=== PATIENT | female | born 1995 | race Caucasian/White ===

== ENCOUNTER 2019-08-25 18:37 | Outpatient (CLI) | payer BC, MEDICAID ==
[2019-08-25 19:16] LABS: APPEARANCE,URINE CLEAR; BILIRUBIN,URINE NEGATIVE (NEGATIVE); COLOR,URINE YELLOW; GLUCOSE, URINE NEGATIVE (NEGATIVE); KETONES,URINE 80 mg/dL (NEGATIVE); LEUKOCYTE ESTERASE,URINE NEGATIVE (NEGATIVE); NITRITE,URINE NEGATIVE (NEGATIVE); PROTEIN,URINE NEGATIVE (NEGATIVE); URINE SPECIFIC GRAVITY 1.014; UROBILINOGEN,URINE NEGATIVE mg/dL (<2.0)
[2019-08-25 19:29] LABS: URINE AMPHETAMINES SCREEN NEGATIVE; URINE BARBITURATES SCREEN NEGATIVE; URINE BENZODIAZEPINES SCREEN NEGATIVE; URINE COCAINE SCREEN NEGATIVE; URINE MARIJUANA (THC) SCREEN NEGATIVE; URINE METHADONE SCREEN NEGATIVE; URINE PHENCYCLIDINE SCREEN NEGATIVE
[2019-08-25] MEDS ORDERED: ACETAMINOPHEN 325 MG TABLET ONE (23:41)
[2019-08-25] MEDS ORDERED: ACETAMINOPHEN 325 MG TABLET PO ONE (23:59)
--- NOTE | 2019-08-26 08:13 | RADIOLOGY REPORT (SQ) ---
EXAM DESCRIPTION: U/S OB 14+ TRNABD 1GES W/O DOP COMPLETED DATE/TIME: 08/25/2019 9:04 pm REASON FOR STUDY: OB Complete COMPARISON: None. TECHNIQUE: Static and Dynamic grayscale imaging performed of gravid uterus using transabdominal appr oac. Additional selected color Doppler and spectral images recorded. All stored on PACS. LIMITATIONS: None. FINDINGS: FETUSES SEEN:1 EGA: 27 week 0 days. Calculated using BPD,FL,HC,AC documented on images. No discrepancy with clinica l dates. HOWARD: 11/24/2019 EFW: 1,020 grams PERCENTILE: 44th GENOVEVA: 11.0 cm. PLACENTA: Anterior. GRADE: I PRESENTATION: Cephalic. ANATOMY: HEART RATE: 153 beats per minute. FOUR CHAMBER HEART: Visualized. THREE VESSEL CORD: Yes. CORD INSERTION: Visualized. KIDNEYS AND BLADDER: Visualized. Appear normal. STOMACH: Visualized. Appears normal. SPINE: Normal as visualized. BRAIN AND LATERAL VENTRICLES: Visualized. Appear normal. OTHER: No other significant finding. MATERNAL ADNEXA: Maternal ovaries not visualized. CERVICAL LENGTH: 3.0 cm. Closed. OTHER: No other significant finding. IMPRESSION: LIVING INTRAUTERINE . ESTIMATED GESTATIONAL AGE 27 WEEK 0 DAYS. NO VISUALIZED ANOMALIES. Trimester of : Second trimester - 13 weeks 1 day to 27 weeks 6 days. TECHNICAL DOCUMENTATION: JOB ID: [id number] TE2- All Rights Reserved Reading location - IP/workstation name: [email or web address]
== END 2019-08-26 00:14 | disposition home or self-care (01) ==
LOC: LC 18:37
PROVIDERS: ATTEND Obstetrics & Gynecology
PROC: 4A1HXCZ Monitoring of Products of Conception, Cardiac Rate, External Approach (ICD-10-PCS; principal; 2019-08-25)
DX: O36.8120 Decreased fetal movements, second trimester, not applicable or unspecified (principal); Z3A.27 27 weeks gestation of pregnancy
CPT/HCPCS: 76805; 80307; 81001

== ENCOUNTER 2019-10-12 10:40 | Outpatient (CLI) | payer BC, MEDICAID ==
[2019-10-12] MEDS ORDERED: RINGERS SOLUTION,LACTATED 1,000 ML IV ONE (11:19)
[2019-10-12] MEDS ORDERED: RINGERS SOLUTION,LACTATED 1,000 ML IV PRN (11:19)
[2019-10-12 11:25] LABS: APPEARANCE,URINE CLEAR; BILIRUBIN,URINE SMALL (NEGATIVE); COLOR,URINE DARK YELLOW; GLUCOSE, URINE NEGATIVE (NEGATIVE); KETONES,URINE TRACE mg/dL (NEGATIVE); LEUKOCYTE ESTERASE,URINE TRACE (NEGATIVE); NITRITE,URINE NEGATIVE (NEGATIVE); PROTEIN,URINE 30 mg/dL (NEGATIVE); URINE SPECIFIC GRAVITY 1.028
[2019-10-12 11:39] LABS: URINE AMPHETAMINES SCREEN NEGATIVE; URINE BARBITURATES SCREEN NEGATIVE; URINE BENZODIAZEPINES SCREEN NEGATIVE; URINE COCAINE SCREEN NEGATIVE; URINE MARIJUANA (THC) SCREEN NEGATIVE; URINE METHADONE SCREEN NEGATIVE; URINE PHENCYCLIDINE SCREEN NEGATIVE
--- NOTE | 2019-10-12 13:01 | Non Stress Test Report ---
Non Stress Test Datetime Report Generated by CPN: 10/12/2019 13:01 DEMOGRAPHIC EGA NST: 34.1 INDICATION Indication for Study (NST) Other: IUP @ 34.1 MONITORING Monitor Explained: Monitor Explained; Test Explained; Patient Verbalized Understanding Time on Monitor: 10/12/2019 11:06 Time off Monitor: 10/12/2019 12:27 NST Duration: 81 NST INTERVENTIONS NST Interventions: PO Hydration; IV Fluids; Reposition Patient Physician Notified NST: Dr. Long BABY A: [id number] BABY A Movement : Present Contraction Frequency : 0 FHR Baseline : 145 Accelerations : 15X15 Variability : Moderate 6-25bpm NST Review: Meets Criteria for Reactive NST NST Review and Verified By : Wendi Camp RNC NST REPORT Report Trigger: Send Report
== END 2019-10-12 12:37 | disposition home or self-care (01) ==
LOC: LC 10:40
PROVIDERS: ATTEND Obstetrics & Gynecology
PROC: 4A1HXCZ Monitoring of Products of Conception, Cardiac Rate, External Approach (ICD-10-PCS; principal; 2019-10-12)
DX: O99.283 Endocrine, nutritional and metabolic diseases complicating pregnancy, third trimester (principal); E86.0 Dehydration; Z3A.34 34 weeks gestation of pregnancy
CPT/HCPCS: 59025; 80307; 81001; 84112